=== PATIENT | male | born 1970 | race Two or more races ===

== ENCOUNTER 2019-04-22 19:31 | Emergency (ER) | payer SELFPAY ==
[~2019-04-22] VITALS: Ht 167.6 cm; Wt 79.4 kg
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
--- NOTE | 2019-04-22 20:01 | NUR ---
[employer] CALLED SPOKE TO [employer]GER #[id number]. STATES WILL DISPATCH [employer] OFFICERS TO SPEAK WITH PT.
[2019-04-22] MEDS ORDERED: ACETAMINOPHEN ES 500 MG TABLET ONE (20:22)
[2019-04-22] MEDS ORDERED: ACETAMINOPHEN ES 500 MG TABLET PO ONE (20:30)
--- NOTE | 2019-04-22 20:30 | NUR ---
XRAY AT AT BEDSIDE TO TAKE PT FOR CT
--- NOTE | 2019-04-22 21:54 | NUR ---
Patient discharged to home in stable condition. Written and verbal after care instructions given. Patient verbalizes understanding of instruction.
[2019-04-22 21:57] VITALS: BP 128/66
== END 2019-04-22 21:57 | disposition home or self-care (01) ==
LOC: ER 19:40
DX: S00.81XA Abrasion of other part of head, initial encounter (principal); Y04.0XXA Assault by unarmed brawl or fight, initial encounter; Y93.89 Activity, other specified; Y92.89 Other specified places as the place of occurrence of the external cause; Y99.8 Other external cause status
CPT/HCPCS: 70450-TC; 70486-TC; 72125-TC; 73030-TC; 73080-TC